=== PATIENT | male | born 1995 | race Caucasian/White ===

== ENCOUNTER 2016-09-01 21:33 | Emergency (ER) | payer OTHER ==
[~2016-09-01] VITALS: Ht 172.7 cm; Wt 92.5 kg
[~2016-09-01 21:33] MED LIST: AZIT250T94 PO; CYCL-319 PO; DENIES; HYDR-3498 PO
[2016-09-01 21:41] VITALS: Ht 172.7 cm; Wt 92.5 kg
[2016-09-02] MEDS ORDERED: LIDOCAINE 1% (MDV) 20 ML INJ SC ONE (01:00)
[2016-09-02] MEDS ORDERED: CEFTRIAXONE 250 MG INJ IM ONE (01:00)
[2016-09-02] MEDS ORDERED: AZITHROMYCIN 250 MG TAB PO ONE (01:00)
--- NOTE | 2016-09-02 02:41 | RADRPT ---
PROCEDURE: ULTRASOUND TESTICULAR CLINICAL INDICATION: 20-year-old male with right-sided testicular pain. TECHNIQUE: Multiple sonographic images of the scrotal region were obtained utilizing a linear arra y transducer with grayscale and color-flow and a Doppler imaging. The images were reviewed on a high -resolution PACS workstation. COMPARISON: None. FINDINGS: The right testicle is well visualized and has a normal echotexture. No focal areas of abnormal echog enicity are visualized. The right testicle measures 4.3 x 1.9 x 2.4 cm. There is normal color-flow. The right epididymis is visualized and measures approximately measures 10 x 7 x 7 mm. There is heber l color-flow. The left testicle is well visualized and has a normal echotexture. No focal areas abnormal echogenic ity are visualized. The left testicle measures 3.7 x 2.0 x 2.5 cm. There is normal color-flow. The l eft epididymis is visualized and measures approximately measures 9 x 7 x 7 mm. There is normal color -flow. There is an ovoid echogenic focus within the right posterior scrotal wall region measuring 10 x 9 mm with mild color flow. IMPRESSION: 1. No sonographic evidence for testicular torsion. 2. Ovoid soft tissue mass within the posterior right scrotal wall region of unknown etiology. Furt her evaluation is suggested. .Robbi Lopez MD, MD Date Time Electronically viewed and signed by .Robbi Lopez MD, MD on 09/02/2016 02:40 .M/
[2016-09-02] MEDS ORDERED: IBUP-1542 PO (02:48)
[2016-09-02 03:24] LABS: URINE BLOOD (Dip) POC Negative (NEGATIVE)
[2016-09-02 03:33] VITALS: BP 135/87; PULSE 64; RESP 18; TEMP 98.5
--- NOTE | 2016-09-02 05:10 | ERD ---
ER Documentation Chief Complaint Date/Time DATE: 09/02/16 TIME: 05:05 Chief Complaint testicular pain since 2 days ago HPI This patient is a 20-year-old male with no significant medical history presenting to the emergency department with testicular pain which is bilateral ongoing intermittently for the past 2 days. Additionally the patient states he saw red dots on the shaft of his penis. The patient has not had intercourse in the past 2 years. He states he always wears condoms. The patient did have CT scan approximately 6 months ago which was normal and showed no kidney stones. Patient denies history of STDs. The patient is taken no medications for relief of his symptoms at home. The patient denies fevers, chills, trauma to the testicles, urethral discharge, or other symptoms at this time. ROS All systems reviewed and are negative except as per history of present illness. Medications Home Meds Active Scripts Ibuprofen* (Motrin*) 600 Mg Tab, 600 MG PO Q6, #30 TAB Prov:DICKSON FERRIS PA-C 09/02/16 Azithromycin* (Zithromax*) 250 Mg Tablet, 250 MG PO .ZPACK DIRECTED, #6 TAB TAKE 500 MG (2 TABS) THE FIRST DAY THEN 250 MG (1 TAB) DAYS 2-5 Prov:EMELYN SUMMERS PA-C 05/23/15 Hydrocodone Bit-Acetaminophen* (Wilton*) 5-325 Mg Tab, 1 TAB PO Q6 Y for PAIN, # 7 TAB Prov:RENETTA HERRERA [employer]. [employer] 05/15/15 Cyclobenzaprine Hcl* (Cyclobenzaprine Hcl*) 10 Mg Tablet, 10 MG PO TID, #15 TAB Prov:RENETTA HERRERA [employer]. [employer] 05/15/15 Reported Medications [Denies] No Conflict Check 07/29/09 Allergies Allergies: Coded Allergies: No Known Drug Allergy (Verified Allergy, Mild, 07/29/09) PMhx/Soc Medical and Surgical Hx: pt denies Medical Hx, pt denies Surgical Hx History of Surgery: No Anesthesia Reaction: No Hx Neurological Disorder: No Hx Respiratory Disorders: No Hx Cardiac Disorders: No Hx Psychiatric Problems: No Hx Miscellaneous Medical Probl: No Hx Alcohol Use: No Hx Substance Use: No Hx Tobacco Use: No Smoking Status: Never smoker FmHx Noncontributory for chief complaint Physical Exam Vitals Vital Signs Date Time Temp Pulse Resp B/P Pulse Ox O2 Delivery O2 Flow Rate FiO2 09/02/16 03:33 98.5 64 18 135/87 100 Room Air 09/01/16 21:41 98.6 64 20 136/99 99 Physical Exam Const: The patient is resting comfortably in no acute distress. Head: Atraumatic Eyes: Normal Conjunctiva ENT: Normal External Ears, Nose and Mouth. Neck: Full range of motion..~ No meningismus. Resp: Clear to auscultation bilaterally Cardio: Regular rate and rhythm, no murmurs Abd: Soft, non tender, non distended. Normal bowel sounds Exam: There are some small red lesions with an umbilicated center on the shaft of the penis. Scrotum: Normal Hernia: None Testes/Epid: Non-tender w/ normal lie Cremaster: Reflex intact Lymph: No inguinal lymphadenopathy Discharge: None Skin: No petechiae or rashes Back: No midline or flank tenderness Ext: No cyanosis, or edema Neur: Awake and alert Psych: Normal Mood and Affect Results 24 hrs Laboratory Tests Test 09/02/16 03:23 Bedside Urine pH (LAB) 6.0 Bedside Urine Protein (LAB) Negative Bedside Urine Glucose (UA) Negative Bedside Urine Ketones (LAB) Negative Bedside Urine Blood Negative Bedside Urine Nitrite (LAB) Negative Bedside Urine Leukocyte Esterase (L Negative Current Medications Medications (Trade) Dose Ordered Sig/Leonard Route PRN Reason Start Time Stop Time Status Last Admin Dose Admin Azithromycin (Zithromax) 1,000 mg ONCE ONCE PO 09/02/16 01:00 09/02/16 01:01 DC 09/02/16 02:21 Ceftriaxone Sodium (Rocephin) 250 mg ONCE ONCE IM 09/02/16 01:00 09/02/16 01:01 DC 09/02/16 02:23 Lidocaine (Xylocaine 1% (Mdv) 20 ml) 20 ml ONCE ONCE SC 09/02/16 01:00 09/02/16 01:01 DC 09/02/16 02:23 Procedures/[facility] EMERGENCY DEPARTMENT COURSE / MEDICAL DECISION MAKING: This is a 20-year-old male who comes to the emergency room secondary to complaints of testicular pain. The patient was given p.o. azithromycin and IM Rocephin in the department. On re -evaluation, the patient was feeling improved. Lab results reviewed and showed no signs of urinary tract infection or proteinuria. Radiology: PROCEDURE: ULTRASOUND TESTICULAR CLINICAL INDICATION: 20-year-old male with right-sided testicular pain. TECHNIQUE: Multiple sonographic images of the scrotal region were obtained utilizing a linear array transducer with grayscale and color-flow and a Doppler imaging. The images were reviewed on a high-resolution PACS workstation. COMPARISON: None. FINDINGS: The right testicle is well visualized and has a normal echotexture. No focal areas of abnormal echogenicity are visualized. The right testicle measures 4.3 x 1.9 x 2.4 cm. There is normal color-flow. The right epididymis is visualized and measures approximately measures 10 x 7 x 7 mm. There is normal color-flow. The left testicle is well visualized and has a normal echotexture. No focal areas abnormal echogenicity are visualized. The left testicle measures 3.7 x 2.0 x 2.5 cm. There is normal color-flow. The left epididymis is visualized and measures approximately measures 9 x 7 x 7 mm. There is normal color-flow. There is an ovoid echogenic focus within the right posterior scrotal wall region measuring 10 x 9 mm with mild color flow. IMPRESSION: 1. No sonographic evidence for testicular torsion. 2. Ovoid soft tissue mass within the posterior right scrotal wall region of unknown etiology. Further evaluation is suggested. .Robbi Lopez MD, MD Date Time Electronically viewed and signed by .Robbi Lopez MD, MD on 09/02/2016 02:40 .M/ CC: DICKSON FERRIS PA-C The primary diagnosis is pain in testicle. Secondary diagnosis is scrotal mass I have low suspicion for testicular cancer, testicular torsion, or other emergent conditions at this time. Discharge: I have discussed the lab results and diagnostic findings with the patient and answered any questions or concerns. The patient was discharged with a prescription for 600 mg ibuprofen. The patient was given urological information for close follow-up. The patient was advised to followup with their PMD in 1-2 days and to return to the Emergency Department if there are any new or worsening symptoms. The patient understood and agreed with the diagnosis, treatment and plan. The patient is stable for discharge at this time. Departure Diagnosis: Primary Impression: Pain in testicle Additional Impression: Mass, scrotum Condition: Fair Patient Instructions: Testicular Pain, Unclear Cause Referrals: JASON DE LA TORRE MD, BRIAN E LEFF, RICHARD G. MD Additional Instructions: Please follow-up with urology with the information provided. Follow-up with your primary care physician within 1 week. Return to the emergency department immediately should you have any new or worsening symptoms, uncontrolled fevers, or other unexplained symptoms. Take all medications as directed. DICKSON FERRIS PA-C Sep 02, 2016 05:09
== END 2016-09-02 03:34 | disposition home or self-care (01) ==
LOC: FTE 21:33
DX: N50.811 Right testicular pain (principal); N50.812 Left testicular pain; N50.89 Other specified disorders of the male genital organs
CPT/HCPCS: 76870; 81003; 87591; J0696; Z7610; 96372